=== PATIENT | female | born 1970 | race Caucasian/White ===

== ENCOUNTER → 2016-12-24 | Outpatient (CLI) | payer BC | LOC: MC.RAD 13:00 | DX: Z12.31 Encounter for screening mammogram for malignant neoplasm of breast (principal); R92.8 Other abnormal and inconclusive findings on diagnostic imaging of breast ==

== ENCOUNTER → 2016-12-25 | Outpatient (CLI) | payer BC | LOC: MC.RAD 13:46 | DX: D24.1 Benign neoplasm of right breast (principal) ==

== ENCOUNTER → 2018-01-19 | Outpatient (CLI) | payer OTHER | LOC: COL.RAD 13:56 | DX: M46.82 Other specified inflammatory spondylopathies, cervical region (principal); M50.323 Other cervical disc degeneration at C6-C7 level; M25.78 Osteophyte, vertebrae; M48.02 Spinal stenosis, cervical region ==

== ENCOUNTER 2018-01-26 07:59 | Emergency (ER) | payer OTHER ==
[~2018-01-26] VITALS: Ht 152.4 cm; Wt 75.0 kg
[2018-01-26 08:04] VITALS: TEMP 98
[2018-01-26] MEDS ORDERED: FLEXERIL 1010 MG/TAB PO (09:30)
[2018-01-26] MEDS ORDERED: MEDROL 4MG DOSPA4 MG PO (09:30)
[2018-01-26] MEDS ORDERED: PERCOCET 325 MG1 TA2 PO (09:30)
[2018-01-26 09:44] VITALS: BP 136/70; PULSE 68
== END 2018-01-26 09:45 | disposition home or self-care (01) ==
LOC: COL.ER 07:59
DX: M50.322 Other cervical disc degeneration at C5-C6 level (principal); M54.9 Dorsalgia, unspecified; Z90.710 Acquired absence of both cervix and uterus
CPT/HCPCS: J1170; J1885; J2360

== ENCOUNTER → 2018-01-29 | Outpatient (CLI) | payer OTHER ==
[~2018-01-29] VITALS: Ht 152.4 cm; Wt 75.0 kg
[~2018-01-29] MED LIST: FLEXERIL 1010 MG/TAB PO; MEDROL 4MG DOSPA4 MG PO; PERCOCET 325 MG1 TA2 PO
[2018-01-29 14:13] VITALS: BP 159/99; PULSE 75
[2018-01-29 15:15] VITALS: BP 140/94; PULSE 68
== END ==
LOC: COL.RAD 13:29
DX: M54.12 Radiculopathy, cervical region (principal)
CPT/HCPCS: J1100

== ENCOUNTER → 2018-06-02 | Outpatient (CLI) | payer BC | LOC: MC.RAD 04-14 11:20 | DX: Z12.31 Encounter for screening mammogram for malignant neoplasm of breast (principal); Z98.890 Other specified postprocedural states ==

== ENCOUNTER → 2018-09-08 | Outpatient (CLI) | payer BC | LOC: COL.RAD 15:40 | DX: M50.322 Other cervical disc degeneration at C5-C6 level (principal); Z98.1 Arthrodesis status ==

== ENCOUNTER → 2019-03-15 | Outpatient (CLI) | payer BC | LOC: COL.RAD 12:47 | DX: M50.023 Cervical disc disorder at C6-C7 level with myelopathy (principal); M48.02 Spinal stenosis, cervical region; Z98.1 Arthrodesis status ==

== ENCOUNTER 2019-05-21 08:09 | Day surgery (SDC) | payer BC ==
[~2019-05-21] VITALS: Ht 165.1 cm; Wt 82.9 kg
[2019-05-21 08:54] VITALS: BP 128/88; PULSE 75; TEMP 98
[2019-05-21 09:50] VITALS: BP 124/85; PULSE 83
--- NOTE | 2019-05-21 09:50 | NUR ---
Pt returns from endo procedure via cart to [facility]. Pt ambulates from cart to recliner with RN assist. Monitors on and alarms set. Call light within reach. Report received from SAVAGE Pang. Pt requesting coffee and muffin. Pt denies any pain or nausea. Pt having hiccups currently. brought back to room.
[2019-05-21 10:00] VITALS: BP 129/82; PULSE 74
--- NOTE | 2019-05-21 10:00 | NUR ---
Pt taking food and drink well. No complaints voiced by patient.
[2019-05-21 10:15] VITALS: BP 112/97; PULSE 74; TEMP 98.4
--- NOTE | 2019-05-21 10:20 | NUR ---
Discharge instructions given to patient and . All questions answered to their satisfaction. Handed to them are a thank you card, discharge instructions, diagnosis information, and a discharge med sheet.
--- NOTE | 2019-05-21 10:28 | NUR ---
Pt transferred out of hospital via wheelchair and Darshana, assist, to private vehicle driven by .
[2019-05-21 12:50] VITALS: BP 118/80; PULSE 78
== END 2019-05-21 10:28 | disposition home or self-care (01) ==
LOC: SDCO 08:09
DX: Z12.11 Encounter for screening for malignant neoplasm of colon (principal); D12.5 Benign neoplasm of sigmoid colon; K57.30 Diverticulosis of large intestine without perforation or abscess without bleeding; Z90.710 Acquired absence of both cervix and uterus; K58.9 Irritable bowel syndrome, unspecified; F50.9 Eating disorder, unspecified; I10 Essential (primary) hypertension
CPT/HCPCS: J2250; J3010; J7030

== ENCOUNTER → 2019-06-09 | Outpatient (CLI) | payer BC | LOC: MC.RAD 10:43 | DX: Z12.31 Encounter for screening mammogram for malignant neoplasm of breast (principal) ==

== ENCOUNTER → 2020-07-06 | Outpatient (CLI) | payer BC | LOC: MC.RAD 06-29 14:45 | DX: Z12.31 Encounter for screening mammogram for malignant neoplasm of breast (principal); N63.10 Unspecified lump in the right breast, unspecified quadrant; Z98.890 Other specified postprocedural states ==

== ENCOUNTER → 2020-07-12 | Outpatient (CLI) | payer BC | LOC: MC.RAD 13:52 | DX: N63.10 Unspecified lump in the right breast, unspecified quadrant (principal) ==

== ENCOUNTER → 2021-01-11 | Outpatient (CLI) | payer BC | LOC: MC.RAD 09:05 | DX: R92.8 Other abnormal and inconclusive findings on diagnostic imaging of breast (principal) ==

== ENCOUNTER → 2021-08-07 | Outpatient (CLI) | payer BC | LOC: MC.RAD 15:25 | DX: Z12.31 Encounter for screening mammogram for malignant neoplasm of breast (principal) ==

== ENCOUNTER 2021-10-18 06:42 | Emergency (ER) | payer BC ==
[~2021-10-18] VITALS: Ht 165.1 cm; Wt 81.8 kg
[2021-10-18 06:50] VITALS: TEMP 98.3
[2021-10-18 07:08] LABS: BASO # 0.1 K/mm3 (0.0-0.2); BASO % 0.6 % (0.0-2.0); EOS # 0.2 K/mm3 (0.0-0.7); EOS % 2.5 % (0.0-4.0); GRAN # 4.3 K/mm3 (1.4-6.5); GRAN % 52.3 % (42.2-75.2); HEMOGLOBIN 14.1 g/dl (12.5-16.0); LYMPH # 3.1 K/mm3 (1.2-3.4); LYMPH % 37.5 % (20.0-51.0); MEAN CELL VOLUME 89 fl (80.0-100.0); MEAN CORPUSCULAR HEMOGLOBIN 29 pg (27-31); MEAN CORPUSCULAR HGB CONC 33 g/dl (33.0-37.0); MEAN PLATELET VOLUME 11.7 fl (7.4-10.4); MONO # 0.6 K/mm3 (0.1-0.6); MONO % 6.7 % (1.7-9.3); PLATELET COUNT 269 K/mm3 (130-400); RED BLOOD COUNT 4.81 M/mm3 (4.10-5.30); REDCELL DISTRIBUTION WIDTH-CV 13.2 % (11.5-14.5)
[2021-10-18] MEDS ORDERED: MULTI-VITAMIN W1 TA1 PO (07:13)
[2021-10-18] MEDS ORDERED: ESTRACE 1MG1 MG/TAB PO (07:13)
[2021-10-18] MEDS ORDERED: B-121000 MCG PO (07:14)
[2021-10-18 07:48] LABS: ALANINE AMINOTRANSFERASE 21 U/L (0-55); ALBUMIN 4.2 gm/dL (3.5-5.0); ALKALINE PHOSPHATASE 61 U/L (40-150); ANION GAP 11 mmol/L (7-16); AST,SGOT 21 U/L (5-34); BILIRUBIN,TOTAL 0.7 mg/dL (0.2-1.2); BLOOD UREA NITROGEN 12 mg/dL (10-20); CALCIUM 9.2 mg/dL (8.4-10.2); CARBON DIOXIDE 23 mmol/L (22-29); CHLORIDE 106 mmol/L (98-107); CREATININE, serum 0.75 mg/dL (0.57-1.11); GLUCOSE 104 mg/dL (70-99); POTASSIUM 3.7 mmol/L (3.5-4.5); SODIUM 140 mmol/L (136-145); TOTAL PROTEIN 7.2 gm/dL (6.2-8.1)
[2021-10-18 07:55] LABS: TROPONIN-I < 0.010 ng/mL (0.00-0.033)
[2021-10-18 11:30] VITALS: BP 120/81; PULSE 80
== END 2021-10-18 11:35 | disposition home or self-care (01) ==
LOC: COL.ER 06:42
PROVIDERS: Emergency Medicine
DX: R07.89 Other chest pain (principal); R20.0 Anesthesia of skin; Z78.0 Asymptomatic menopausal state; Z79.818 Long term (current) use of other agents affecting estrogen receptors and estrogen levels; Z79.82 Long term (current) use of aspirin
CPT/HCPCS: J7030

== ENCOUNTER → 2022-08-08 | Outpatient (CLI) | payer BC ==
[~2022-08-08] MED LIST changes: +B-121000 MCG PO; +ESTRACE 1MG1 MG/TAB PO; +MULTI-VITAMIN W1 TA1 PO
== END ==
LOC: MC.RAD 09:24
DX: Z12.31 Encounter for screening mammogram for malignant neoplasm of breast (principal)